=== PATIENT | female | born 1930 | race Caucasian/White ===

== ENCOUNTER 2017-12-25 05:22 | Inpatient (IN) | payer MEDICARE ==
--- NOTE | 2017-12-18 13:56 | Diagnostic Imaging Report ---
PROCEDURE: Frontal and lateral views of the chest. COMPARISON: None. INDICATIONS: PREOPERATIVE CHEST XRAY FOR CAROTID STENOSIS FINDINGS: Lines/tubes: None. Lungs: Bilateral reticular parenchymal changes, most prominent in the right lung base. No parenchymal mass. Pleura: There is no pleural effusion or pneumothorax. Heart and mediastinum: The heart and the mediastinum are normal. Atherosclerotic calcifications. Bones: No acute bony abnormality. Degenerative changes of the thoracic spine. IMPRESSION: No acute radiographic abnormality. 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 Dictated by: Jorge Luis Gomez M.D. on 12/18/2017 at 13:57 Electronically approved by: Jorge Luis Gomez M.D. on 12/18/2017 at 13:57
[2017-12-23 10:12] LABS: BASOPHILS % 0.6 % (0.0-1.0); EOSINOPHILS # (AUTO) 0.2 (0.0-0.4); EOSINOPHILS % 2.3 % (0.0-6.0); HEMATOCRIT 34.9 % (34.2-44.1); LYMPHOCYTES # (AUTO) 1.9 (1.0-3.2); LYMPHOCYTES % 28.4 % (18.0-39.1); MEAN CORPUSCULAR HEMOGLOBIN 25.3 pg (28-32); MEAN CORPUSCULAR HGB CONC 31.5 g/dL (31-35); MEAN CORPUSCULAR VOLUME 80.4 fL (81-99); MONOCYTES # (AUTO) 0.7 (0.2-0.8); MONOCYTES % 10.9 % (4.4-11.3); NEUTROPHILS # (AUTO) 3.7 (2.1-6.9); NEUTROPHILS % 56.7 % (38.7-80.0); PLATELET COUNT 237 x10e3/uL (140-360); RED BLOOD COUNT 4.34 x10e6/uL (3.6-5.1); RED CELL DISTRIBUTION WIDTH 17.3 % (11.7-14.4)
[2017-12-23 10:21] LABS: INR 1.06
[2017-12-23 10:22] LABS: PARTIAL THROMBOPLASTIN TIME 29.7 seconds (23.8-35.5)
[2017-12-23 10:26] LABS: ANION GAP 12.5 mmol/L (8-16); CALCIUM 9.5 mg/dL (8.4-10.2); POTASSIUM 4.5 mmol/L (3.5-5.1)
[2017-12-25] VITALS (40 sets, daily range): BP systolic 66–150; BP diastolic 33–86
[~2017-12-25] VITALS: Ht 170.2 cm; Wt 86.2 kg
[~2017-12-25 05:22] MED LIST: ALLOPURINOL300 MG PO; ARICEPT5 MG PO; ASPIR 8181 MG PO; ATORVASTATIN CA10 MG PO; CENTRUM COMPLE1 EACH PO; DIOVAN160 MG PO; FUROSEMIDE40 MG PO; HUMALOG100 UNIT/1 SC; IRON PO; LANTUS 3ML100 UNITS/ SC; LEVOTHYROXINE112 MCG PO; METOPROLOL TART50 MG PO
--- OUTSIDE RECORDS SUMMARY | 2017-12-25 05:24 | XMS REPORT ---
Author Author [facility] Address Unknown Phone Unavailable Care Team Providers Care Sales Designer Name Role Phone EFREN PHELPS Unavailable Unavailable Problems This patient has no known problems. Allergies, Adverse Reactions, Alerts This patient has no known allergies or adverse reactions. Medications This patient has no known medications. Results Test Description Test Time Test Comments Text Results Atomic Results Result Comments CHEST 2 VIEWS [place] [address] Patient Name: ETHEL ALEJO MR #: [id number] : 1930 Age/Sex: 87/F Req # : [id number] Adm Physician: Ordered by: EFREN PHELPS MD Report #: [id number] Location: OR Room/Bed: Procedure: [id number] DX/CHEST 2 VIEWS Exam Date: Exam Time: REPORT STATUS: Signed PROCEDURE: Frontal and lateral views of the chest. COMPARISON: None. INDICATIONS: PREOPERATIVE CHEST XRAY FOR CAROTID STENOSIS FINDINGS: Lines/tubes: None. Lungs: Bilateral reticular parenchymal changes, most prominent in the right lung base. No parenchymal mass. Pleura: There is no pleural effusion or pneumothorax. Heart and mediastinum: The heart and the mediastinum are normal. Atherosclerotic calcifications. Bones: No acute bony abnormality. Degenerative changes of the thoracic spine. IMPRESSION: No acute radiographic abnormality. 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 Dictated by: Leonel Gomez M.D. on 12/18/2017 at 13:57 Electronically approved by: Leonel Gomez M.D. on 12/18/2017 at 13:57 Dictated By: LEONEL GOMEZ MD [id number] Transcribed By: CHRISTIANO on 12/18/17 1357 COPY TO: EFREN PHELPS MD
[2017-12-25] MEDS ORDERED: HEPARIN SOD/SOD CHLORIDE 1,000 ML ONE (06:17)
[2017-12-25] MEDS ORDERED: HEPARIN SOD (PORCINE) 1000 UNIT/ML 30ML ONE (06:44)
[2017-12-25] MEDS ORDERED: PROTAMINE SULFATE 10 MG/ML 5 ML VIAL ONE (06:44)
[2017-12-25] MEDS ORDERED: LIDOCAINE HCL 1% 2 ML AMP ONE (06:44)
[2017-12-25] MEDS ORDERED: MUPIROCIN 2% OINT 22 GM TUBE ONE (06:45)
[2017-12-25] MEDS ORDERED: GELATIN SPONGE SZ 100 ONE (06:45)
[2017-12-25] MEDS ORDERED: SODIUM CHLORIDE 0.9% 500ML 500 ML ONE (06:45)
[2017-12-25] MEDS ORDERED: THROMBIN FOR SOLN 5,000 UNIT VIAL ONE (06:45)
[2017-12-25] MEDS ORDERED: LIDOCAINE HCL (LTA) 4 ML SOLN ONE (07:31)
[2017-12-25 09:52] LABS: BASOPHILS % 0.3 % (0.0-1.0); EOSINOPHILS # (AUTO) 0.1 (0.0-0.4); EOSINOPHILS % 1.2 % (0.0-6.0); HEMOGLOBIN 9.9 g/dL (12.0-16.0); LYMPHOCYTES # (AUTO) 1.4 (1.0-3.2); MEAN CORPUSCULAR HEMOGLOBIN 25.3 pg (28-32); MEAN CORPUSCULAR HGB CONC 31.9 g/dL (31-35); MEAN CORPUSCULAR VOLUME 79.1 fL (81-99); MONOCYTES # (AUTO) 0.7 (0.2-0.8); MONOCYTES % 7.6 % (4.4-11.3); NEUTROPHILS # (AUTO) 6.6 (2.1-6.9); NEUTROPHILS % 73.1 % (38.7-80.0); PLATELET COUNT 184 x10e3/uL (140-360); RED BLOOD COUNT 3.92 x10e6/uL (3.6-5.1); RED CELL DISTRIBUTION WIDTH 17.3 % (11.7-14.4)
[2017-12-25 10:28] LABS: ANION GAP 11.7 mmol/L (8-16); POTASSIUM 4.7 mmol/L (3.5-5.1)
[2017-12-25] MEDS ORDERED: DEXTROSE 50% SYRINGE 50 ML IV PRN (12:15)
[2017-12-25] MEDS ORDERED: HYDROCODONE/APAP 5MG-325MG TAB PO PRN (12:15)
[2017-12-25] MEDS ORDERED: MORPHINE SULFATE 2 MG/ML SYR IV PRN (12:15)
[2017-12-25] MEDS ORDERED: ONDANSETRON HCL 4 MG ORAL DISINTEGRATING TAB PO PRN (12:15)
[2017-12-25] MEDS ORDERED: LABETALOL HCL 5 MG/ML 20ML VIAL IV PRN (12:15)
[2017-12-25] MEDS: SODIUM CHLORIDE 0.9% 1000ML 1,000 ML IV SCH ×2 (12:50→22:43)
--- NOTE | 2017-12-25 15:14 | Operative Report ---
DATE OF PROCEDURE: December 25, 2017 PREOPERATIVE DIAGNOSIS: Severe right carotid stenosis. POSTOPERATIVE DIAGNOSIS: Severe right carotid stenosis. LACER AND TIER: Richie Corcoran CST TITLE OF OPERATION: Right carotid endarterectomy. DESCRIPTION OF OPERATION: After the satisfactory accomplishment of general anesthesia, the patient's right neck was prepped and draped in sterile fashion. A standard right carotid incision was made along the anterior border of the sternomastoid muscle. The incision was carried down through the muscles and fascia to expose the right common carotid artery. The vessel was dissected free from the surrounding tissues and looped with a vessel loop. The dissection was then carried distally to expose the internal carotid artery and the external carotid artery and its branches. Care was taken to identify and preserve all nerve structures in the region. Systemic heparin was given through a central vein cannula for the purposes of anticoagulation. The common, external and internal carotid arteries were briefly crossclamped. A long incision was made in the common carotid artery and carried through the bifurcation and well up into the internal carotid artery. A severely obstructing atherosclerotic plaque was quickly identified. The plaque was removed using standard endarterectomy techniques. During this procedure and throughout the operation, the internal carotid artery crossclamp was intermittently released to ensure the constant presence of brisk pulsatile backbleeding. The surface of the vessel was smoothed, and all loose debris was carefully removed. Heparinized saline flushes were routinely employed. The arteriotomy incision was then closed with a combination of running 7-0 and running 6-0 Prolene sutures. Prior to completing the closure, the clamps were released and the vessel was flushed free of all air and debris. Once the sutures were tied, excellent pulses were felt within the endarterectomy site and beyond. Protamine was given to counteract the effects of the heparin. All bleeding points were carefully cauterized, ligated or oversewn. The wound was thoroughly irrigated with antibiotic solution and then closed in layers with interrupted 2-0 Vicryl for the deep tissues, running 2-0 Vicryl for the subcutaneous tissues, and a Monocryl subcuticular stitch for the skin. The patient tolerated the procedure well and was returned to the intensive care unit in good condition. Job#: [id number]
--- NOTE | 2017-12-25 16:16 | Consultation ---
DATE OF CONSULTATION: December 25, 2017 PULMONARY/CRITICAL CARE CONSULTATION REFERRING PHYSICIAN: Dr. Tanvir Barfield. CHIEF COMPLAINT: COPD and recent carotid endarterectomy. HISTORY OF PRESENT ILLNESS: The patient is an 87-year-old woman. She has a history of hypertension, COPD and obstructive sleep apnea. She was found to have a right carotid stenosis. She went for a right carotid endarterectomy. The procedure went well. The patient was transferred back to the ICU. She had her catheter removed from her bladder. She has remained hemodynamically stable. She has no neurological deficits and she is eager to get up. PAST MEDICAL HISTORY: 1. Hypertension. 2. COPD. PAST SURGICAL HISTORY: 1. Knee surgery. 2. Gallbladder surgery. FAMILY HISTORY: Noncontributory. SOCIAL HISTORY: The patient does not smoke at this time. She is not an active drinker. REVIEW OF SYSTEMS: The patient she has no fever. There is no headache. She does have some postoperative discomfort. She does not have chest pain. She has no difficulty breathing. She has no abdominal pain. She has no nausea or vomiting. She does not have any leg pain or swelling. PHYSICAL EXAMINATION: VITAL SIGNS: The patient is afebrile. Vital signs stable. HEENT: Examination shows no facial swelling or erythema. The nasal mucosa is normal. The oropharynx is normal. LYMPHATIC: Examination shows no submandibular, cervical or supraclavicular adenopathy. CARDIAC: Exam reveals a regular rate and rhythm with normal S1 and S2. No murmurs or rubs heard. LUNGS: Auscultation reveals clear breath sounds relatively. There is no wheezing. ABDOMEN: Is soft and nontender. No rebound or guarding. EXTREMITIES: Shows no leg edema or calf tenderness. There is no cyanosis or clubbing. NEUROLOGIC: Exam shows no focal abnormalities. SKIN: Examination shows no rashes. IMPRESSION 1. Chronic obstructive pulmonary disease. 2. Recent carotid endarterectomy. PLAN: 1. Bed. 2. Postoperative wound care. 3. Continue current inhaler regimen. Job#: [id number]
[2017-12-25] MEDS: INSULIN REGULAR, HUMAN 100 UNIT/1 ML 3ML VIAL SQ SCH (17:28)
[2017-12-25] MEDS ORDERED: CEFAZOLIN SOD 1 GM VIAL IV NR (18:00)
[2017-12-25] MEDS ORDERED: FENTANYL CITRATE/PF 100MCG/2 ML INJ ONE (18:53)
[2017-12-25] MEDS ORDERED: MIDAZOLAM HCL 2 MG/2 ML VIAL ONE (18:53)
[2017-12-26] VITALS (33 sets, daily range): BP systolic 98–139; BP diastolic 45–120
[2017-12-26] MEDS: INSULIN REGULAR, HUMAN 100 UNIT/1 ML 3ML VIAL SQ SCH ×3 (00:19→11:50)
[2017-12-26 06:09] LABS: BASOPHILS % 0.2 % (0.0-1.0); EOSINOPHILS % 0.2 % (0.0-6.0); HEMATOCRIT 29.9 % (34.2-44.1); HEMOGLOBIN 9.5 g/dL (12.0-16.0); LYMPHOCYTES # (AUTO) 1.1 (1.0-3.2); LYMPHOCYTES % 9.3 % (18.0-39.1); MEAN CORPUSCULAR HEMOGLOBIN 25.3 pg (28-32); MEAN CORPUSCULAR HGB CONC 31.8 g/dL (31-35); MEAN CORPUSCULAR VOLUME 79.7 fL (81-99); MONOCYTES # (AUTO) 1.7 (0.2-0.8); MONOCYTES % 13.8 % (4.4-11.3); NEUTROPHILS # (AUTO) 9.2 (2.1-6.9); NEUTROPHILS % 75.7 % (38.7-80.0); PLATELET COUNT 206 x10e3/uL (140-360); RED BLOOD COUNT 3.75 x10e6/uL (3.6-5.1); RED CELL DISTRIBUTION WIDTH 17.9 % (11.7-14.4)
[2017-12-26 06:41] LABS: ALANINE AMINOTRANSFERASE 14 IU/L (0-55); ALBUMIN/GLOBULIN RATIO 1.1 (0.8-2.0); ALKALINE PHOSPHATASE 68 IU/L (40-150); ANION GAP 11.5 mmol/L (8-16); BLOOD UREA NITROGEN 28 mg/dL (7-26); BUN/CREATININE RATIO 33 (6-25); CALCIUM 8.9 mg/dL (8.4-10.2); CARBON DIOXIDE 26 mmol/L (22-29); CHLORIDE 104 mmol/L (98-107); CREATININE, SERUM 0.85 mg/dL (0.57-1.11); EST GLOMERULAR FILTRATION RATE > 60 ML/MIN (60-); GLUCOSE 141 mg/dL (74-118); POTASSIUM 4.5 mmol/L (3.5-5.1); SODIUM 137 mmol/L (136-145)
[2017-12-26 07:12] LABS: FREE THYROXINE INDEX 2.7253 (1.4-3.8); THYROID STIMULATING HORMONE 0.183 uIU/mL (0.350-4.940)
[2017-12-26 08:02] LABS: BAND NEUTROPHILS % (MANUAL) 2 %; LYMPHOCYTES % (MANUAL) 11 % (19-48); METAMYELOCYTES % (MANUAL) 1 % (0-0); MONOCYTES % (MANUAL) 10 % (3.4-9.0); NEUTROPHILS % (MANUAL) 75 % (40-74)
[2017-12-26 08:03] LABS: ANISOCYTOSIS MODERATE; HYPOCHROMASIA SLIGHT; PLATELET ESTIMATE ADEQUATE; PLATELET MORPHOLOGY COMMENT FEW LARGE; RBC MORPHOLOGY COMMENT NORMAL
[2017-12-26] MEDS ORDERED: NON-FORMULARY MEDICATION ([Iron] 65 MG) PO SCH (09:00)
[2017-12-26] MEDS ORDERED: ALLOPURINOL 300 MG TAB PO SCH (09:00)
[2017-12-26] MEDS ORDERED: MULTIVITAMINS/MINERALS TAB PO SCH (09:00)
[2017-12-26] MEDS ORDERED: NON-FORMULARY MEDICATION (Multivitamin/Iron/Folic Acid (Centrum Complete Multivit Tab) 1 T PO SCH (09:00)
[2017-12-26] MEDS ORDERED: LEVOTHYROXINE SODIUM 112 MCG TAB PO SCH (09:00)
[2017-12-26] MEDS ORDERED: METOPROLOL TARTRATE 50 MG TAB PO SCH (09:00)
[2017-12-26] MEDS ORDERED: ENOXAPARIN SOD INJ 40 MG/0.4 ML SYR SC SCH (09:00)
[2017-12-26] MEDS ORDERED: VALSARTAN 160 MG TAB PO SCH (09:00)
[2017-12-26] MEDS ORDERED: FERROUS SULFATE 325 MG TAB PO SCH (09:00)
[2017-12-26] MEDS ORDERED: ASPIRIN 81 MG CHEW TAB PO SCH (09:00)
[2017-12-26] MEDS ORDERED: FUROSEMIDE 40 MG TAB PO SCH (09:00)
[2017-12-26] MEDS ORDERED: MUPIROCIN 2% OINT 22 GM TUBE TOP SCH (09:00)
[2017-12-26] MEDS ORDERED: NON-FORMULARY MEDICATION (Insulin Lispro (Humalog) 10 UNITS) SC SCH (09:00)
[2017-12-26] MEDS ORDERED: LEVOTHYROXINE SODIUM 125 MCG TAB PO SCH (09:30)
[2017-12-26] MEDS ORDERED: BACTROBAN15 G1 TP (09:33)
[2017-12-26] MEDS ORDERED: TYLENOL WITH C1 EACH PO (09:37)
--- NOTE | 2017-12-26 09:47 | Consultation ---
DATE OF CONSULTATION: December 25, 2017 CARDIOLOGY CONSULTATION REASON FOR CONSULTATION: Status post right carotid endarterectomy. HPI: This is a pleasant 87-year-old female that underwent a right carotid stenosis endarterectomy and she is recovering in the ICU. She was found with carotid stenosis and she came in as an outpatient. The surgery went well. She has a history of hypertension, diabetes and COPD. She denied any chest pain, any palpitation, any dizziness, any shortness of breath, diaphoresis, or headache. PAST MEDICAL HISTORY: Right carotid stenosis, hypertension, diabetes, gout, COPD, and sleep apnea. PAST SURGICAL HISTORY: Knee surgery and cholecystectomy. FAMILY HISTORY: Positive for hypertension. SOCIAL HISTORY: No smoking. No drinking. She lives at home with the daughter. MEDICATION: See med list. ALLERGIES: SHE IS NOT ALLERGIC TO ANY MEDICATION. REVIEW OF SYSTEMS: Negative except those mentioned above. She is status post right carotid endarterectomy. PHYSICAL EXAMINATION VITAL SIGNS: Temperature 98, heart rate 87, blood pressure 112/83, respirations 18, oxygen saturation 95% on 2 L nasal cannula. GENERAL: She is awake, alert and oriented times 3. HEENT: Mucous membrane moist. NECK: Supple. She has got a dressing on the right. LUNGS: Bilateral clear to auscultation. CARDIOVASCULAR: S1 and S2 present. ABDOMEN: Soft. NEUROLOGICAL: Intact. EXTREMITIES: With no edema. LABS: Sodium 137, potassium 4.5, chloride 104, CO2 26, BUN 28, creatinine 0.85, glucose 141. White blood cells 12.1, hemoglobin 9.5, hematocrit 29.9, and platelets 206,000. PT 13, PTT 29.7 and INR 1.06. IMPRESSION 1. Right carotid stenosis s/p CEA. 2. Hypertension. 3. Diabetes. 4. Chronic obstructive pulmonary disease. 5. Gout. 6. History of sleep apnea. ASSESSMENT AND PLAN 1. Surgery went okay and she is recovering and very asymptomatic. 2. Heart rate was found low in the 50s. Will go ahead and hold AV blockers and monitor her. 3. Will get an echocardiogram to assess the LV and valve function. 4. Will check thyroid function tests. 5. Will continue wound care to the right neck. 6. Okay to transfer out of the ICU and possible discharge down the line. Further cardiac workup pending clinical course. Thank you for this consultation. DICTATED BY MARISSA ADAMS NP Job#: [id number] ESTEBAN LOZANO
[2017-12-26] MEDS ORDERED: ROCURONIUM BROMIDE 10 MG/ML 5ML VIAL ONE (10:03)
[2017-12-26] MEDS ORDERED: LIDOCAINE HCL 2% JELLY 5 ML TUBE ONE (10:03)
[2017-12-26] MEDS ORDERED: EYE LUBRICANT OPTH OINT 3.5GM TUBE OP ONE (10:03)
[2017-12-26] MEDS ORDERED: DEXAMETHASONE SOD PHOS INJ 4 MG/ML VIAL ONE (10:03)
[2017-12-26] MEDS ORDERED: LIDOCAINE HCL 2% LOCAL INJ 5 ML SDV VIAL INJ ONE (10:03)
[2017-12-26] MEDS ORDERED: EPHEDRINE SULFATE INJ 50 MG/10 ML SYR ONE (10:03)
[2017-12-26] MEDS ORDERED: ACETAMINOPHEN 1000 MG/100 ML IV ONE (10:03)
[2017-12-26] MEDS ORDERED: PROPOFOL IV EMULSION 10 MG/ML 20 ML VIAL ONE (10:03)
[2017-12-26] MEDS ORDERED: LABETALOL HCL 5 MG/ML 20ML VIAL ONE (10:03)
[2017-12-26] MEDS ORDERED: SEVOFLURANE INHAL SOLN 250 ML PEN BTL ONE (10:03)
[2017-12-26] MEDS ORDERED: ONDANSETRON HCL INJ 2 MG/ML VIAL ONE (10:03)
[2017-12-26] MEDS ORDERED: INSULIN LISPRO 100 UNIT/1 ML 3ML VIAL SQ SCH (12:00)
[2017-12-26] MEDS ORDERED: INSULIN DETEMIR 100 UNIT/ML PEN SQ SCH (21:00)
[2017-12-26] MEDS ORDERED: ATORVASTATIN 10 MG TAB PO SCH (21:00)
[2017-12-26] MEDS ORDERED: DONEPEZIL HCL 5 MG TAB PO SCH (21:00)
== END 2017-12-26 16:32 | disposition home or self-care (01) | DRG 39 ==
LOC: OR 05:22 → ICU 10:57
PROVIDERS: ADMIT Thoracic Surgery (Cardiothoracic Vascular Surgery); ATTEND Thoracic Surgery (Cardiothoracic Vascular Surgery)
PROC: 03CH0ZZ Extirpation of Matter from Right Common Carotid Artery, Open Approach (ICD-10-PCS; principal; 2017-12-25 07:30)
DX: I65.21 Occlusion and stenosis of right carotid artery (principal); I10 Essential (primary) hypertension; E11.9 Type 2 diabetes mellitus without complications; J44.9 Chronic obstructive pulmonary disease, unspecified; G47.33 Obstructive sleep apnea (adult) (pediatric); M10.9 Gout, unspecified; Z79.4 Long term (current) use of insulin; F03.90 Unspecified dementia, unspecified severity, without behavioral disturbance, psychotic disturbance, mood disturbance, and anxiety; E03.9 Hypothyroidism, unspecified; Z79.52 Long term (current) use of systemic steroids
CPT/HCPCS: 36415; 71046; 80048; 80051; 80053; 82948; 84436; 84443; 84479; 85025; 85610; 85730; 86850; 86900; 86920; 88304; 88311; 93005; 93306; 96361; 96372; J0690; J1100; J1644; J2001; J2250; J2405; J2720; J7030; J7040